=== PATIENT | male | born 1970 | race Two or more races ===

== ENCOUNTER 2019-10-18 09:16 | Emergency (ER) | payer SELFPAY ==
[~2019-10-18] VITALS: Ht 177.8 cm; Wt 102.1 kg
--- NOTE | 2019-10-18 09:47 | NUR ---
DR MCMAHON AT BEDSIDE FOR EVAL.
--- NOTE | 2019-10-18 09:58 | NUR ---
GENERAL MAINTENANCE MECHANIC AT BEDSIDE FOR BLOOD DRAW.
[2019-10-18 10:13] LABS: CALCIUM, SERUM 8.7 mg/dL (8.5-10.1); CARBON DIOXIDE 28 mmol/L (21-32); CHLORIDE 101 mmol/L (98-107); CREATININE 1.1 mg/dL (0.6-1.3); GLUCOSE 256 mg/dL (74-106); POTASSIUM 3.4 mmol/L (3.5-5.1); SODIUM SERUM 138 mmol/L (136-145); UREA NITROGEN, BLOOD 15 mg/dL (7-18)
[2019-10-18 10:16] LABS: BASOPHILS % (AUTO) 0.4 % (0.0-2.0); HEMATOCRIT 42 % (39-51); HEMOGLOBIN 13.7 g/dL (13.5-17.5); LYMPHOCYTES # (AUTO) 1.5 /CMM (0.8-4.8); LYMPHOCYTES % (AUTO) 17.6 % (20.0-44.0); MEAN CORPUSCULAR HGB CONC 33 g/dl (31.0-36.0); MEAN CORPUSCULAR VOLUME 86 fL (80-96); MONOCYTES # (AUTO) 0.6 /CMM (0.1-1.30); NEUTROPHILS # (AUTO) 6.2 /CMM (1.8-8.9); PLATELET COUNT (AUTO) 227 /CMM (150-450); RED BLOOD CELL COUNT(AUTO) 4.83 MIL/uL (4.5-6.0); WHITE BLOOD COUNT (AUTO) 8.6 K/uL (4.3-11.0)
--- NOTE | 2019-10-18 11:15 | NUR ---
Social Service consult requested by for homelessness. Per chart review, pt is a 49-year-old male who came to the ED complaining of not feeling well. DISTRICT SUPERVISOR met with the pt bedside. Pt is alert and oriented x 4. Pt appears disheveled and unkempt. Pt had his belongings bedside. Pt's mood is congruent. Pt states he has been homeless since 1989. Pt informed SW he sleeps on buses or on the streets. Pt does not have a tent or an encampment. Pt denies any psychiatric history. Pt denies suicidal/homicidal ideations and visual/auditory hallucinations at this time. Pt receives GR and Food stamps monthly. Pt is interested in prison resources. [facility] provided pt with homeless packet which includes [facility] 2194-7104 [facility] Sk[facility] Nursing program list, [facility] located at [address] ; [facility], [address] [place] [address], [place] ; [facility] [place], [address] [facility] [address] [facility] [facility] ; [facility] Homeless Resource Directory which includes food stamps, transitional housing, showers and hot meals etc; Mental Health clinics such as [facility] ; [facility] ; Health clinics;[facility] and Alcohol treatment centers such as [facility] [place], ; [facility] and [facility] . Homeless Patient waiver form was signed by the pt. and placed in pt's chart. TAP card was provided. [facility] is aware of pt's discharge disposition.
--- NOTE | 2019-10-18 11:33 | NUR ---
Patient discharged to home in stable condition. Written and verbal after care instructions given. Patient verbalizes understanding of instruction. homeless waiver signed.
[2019-10-18 11:35] VITALS: BP 135/84
== END 2019-10-18 11:35 | disposition home or self-care (01) ==
LOC: ER 09:18
DX: R07.89 Other chest pain (principal); R55 Syncope and collapse; E87.6 Hypokalemia; R42 Dizziness and giddiness; R63.2 Polyphagia; I10 Essential (primary) hypertension; Z59.0 Homelessness
CPT/HCPCS: 36415; 71045-TC; 80048-TC; 84484-TC; 85025-TC